=== PATIENT | female | born 1980 | race Two or more races ===

== ENCOUNTER 2025-07-14 06:13 | Emergency (ER) | payer MEDICAID, OTHER ==
[~2025-07-14] VITALS: Ht 152.4 cm; Wt 98.7 kg
--- NOTE | 2025-07-14 07:07 | ED.PDOC ---
History of Present Illness(SKN HPI Comments 45 y/o F, presents to the ED for CC of abscess. Patient states, she has an abscess to her right trapezius that has become swollen and painful to the touch x4days. Patient reports, abscess to have been present for some time however, site then became irritated d/t carrying a handbag that rubs against it. Patient denies fever, chills, sweats, or purulent drainage. No other symptoms or modifying factors are present at this time. Chief Complaint: Abscess Time Seen by MD: 07:00 History of Present Illness: Nurses Notes, Medications, Allergies Allergies: Coded Allergies: No Known Drug Allergy (Verified Allergy, Unknown, 07/14/25) Information Source: Patient Mode of Arrival: Ambulatory Severity: Moderate Timing: Days Duration: Since onset Prehospital treatment: None Location: Back (right trapezius) Mechanism: Spontaneous Onset Associated Signs and Symptoms: Redness, Swelling Past Medical History PAST MEDICAL HISTORY: Denies Surgical History: Denies all surgeries RECOVERY SPECIALIST History: Denies all RECOVERY SPECIALIST Hx Family History Family History: Unobtainable Social History Smoker: Non-Smoker Alcohol: Denies ETOH Use Drugs: Denies Drug Use Lives In: Home Constitutional: denies: chills, diaphoresis, fatigue, fever, malaise, sweats, weakness, others EENTM: denies: blurred vision, double vision, ear bleeding, ear discharge, ear drainage, ear pain, ear ringing, eye pain, eye redness, hearing loss, mouth pain, mouth swelling, nasal discharge, nose bleeding, nose congestion, nose pain, photophobia, tearing, throat pain, throat swelling, voice changes, others Respiratory: denies: cough, hemoptysis, orthopnea, SOB at rest, shortness of breath, SOB with excertion, stridor, wheezing, others Cardiovascular: denies: chest pain, dizzy spells, diaphoresis, Dyspnea on exertion, edema, irregular heart beat, left arm pain, lightheadedness, palpitations, PND, syncope, others Gastrointestinal: denies: abdomen distended, abdominal pain, blood streaked bowels, constipated, diarrhea, dysphagia, difficulty swallowing, hematemesis, melena, nausea, poor appetite, poor fluid intake, rectal bleeding, rectal pain, vomiting, others Genitourinary: denies: abnormal vagina bleeding, burning, dyspareunia, dysuria, flank pain, frequency, hematuria, incontinence, pain, , vagina discharge, urgency, others Neurological: denies: dizziness, fainting, headache, left sided numbness, left sided weakness, numbness, paresthesia, pre-existing deficit, right sided numbness, right sided weakness, seizure, speech problems, tingling, tremors, weakness, others Musculoskeletal: denies: back pain, gout, joint pain, joint swelling, muscle pain, muscle stiffness, neck pain, others Integumetry: reports: others (abscess); denies: bruises, change in color, change in hair/nails, dryness, laceration, lesions, lumps, rash, wounds Allergic/Immunocompromised: denies: Difficulty Healing, Frequent Infections, Hives, Itching, others Hematologic/Lymphatic: denies: anemia, blood clots, easy bleeding, easy bruising, swollen glands, others Endocrine: denies: excessive hunger, excessive sweating, excessive thirst, excessive urination, flushing, intolerance to cold, intolerance to heat, unexplained weight gain, unexplained weight loss, others Psychiatric: denies: anxiety, bipolar disorder, depression, hopeless, panic disorder, schizophrenia, sleepless, suicidal, others All Other Systems: Reviewed and Negative Physical Exam General Appearance: No Apparent Distress, Normal HEENT: Normal ENT Inspection, Pharynx Normal Neck: Full Range of Motion, Non-Tender, Normal, Normal Inspection Respiratory: Chest Non-Tender, Lungs Clear, No Accessory Muscle Use, No Respiratory Distress, Normal Breath Sounds Cardiovascular: No Edema, No Murmur, No Gallop, Normal Peripheral Pulses, Regular Rate/Rhythm Breast Exam: Deferred Gastrointestinal: No Organomegaly, Non Tender, No Pulsatile Mass, Normal Bowel Sounds, Soft Genitalia: Deferred Pelvic: Deferred Rectal: Deferred Extremities: No calf tenderness, Normal capillary refill, Normal inspection, Normal range of motion, Non-tender, No pedal edema Musculoskeletal : Apperance: Normal Neurologic: Alert, shredder operator II-XII nml as Tested, No Motor Deficits, Normal Affect, Normal Mood, No Sensory Deficits Cerebellar Function: Normal Reflexes: Normal Skin: Dry, Normal Color, Warm, Other (3x3cm round abscess to the right trapezius, swelling and erythema are noted) Lymphatic: No Adenopathy Was a procedure done? Was a procedure done?: Yes Sedation Sedation?: No Incision and Drainage Incision and Drainage: Other (Abscess versus phlegmon) Location Right trapezius Anesthetic: Lidocaine Preparation: Betadine Incision and Wound: Blood Informed consent obtained: Yes Risks/benefits/alt described: Yes Notes Patient tolerated the procedure well without any complications Differential Diagnosis (INTG) Abscess: Abscess, Cellulitis X-Ray, Labs, Meds, VS Vital Signs Date Time Temp Pulse Resp B/P (MAP) Pulse Ox O2 Delivery O2 Flow Rate FiO2 07/14/25 07:57 Room Air* 0 21 07/14/25 07:57 98.3 96 16 137/80 (99) 98 98.3 07/14/25 06:17 97.9 86 16 133/81 98 97.9 Time of 1ST Reevaluation: 07:30 Reevaluation 1ST: Unchanged Patient Education/Counseling: Diagnosis, Treatment, Prognosis, Need For Follow Up Family Education/Counseling: No Family Present Comments This is a patient who presents with a cellulitic area that is swollen on the right trapezius area. On examination there is no clear margins, no clear border to indicate a definite abscess. However the area is fallen and there is surrounding redness. After giving the patient the options of starting treatment with antibiotics 1st or tried to I and D along with the antibiotics patient chose to have the I and D. She understands that this may be phlegmon and not an abscess therefore we may not get any pus from the I&D. Patient understands it and chooses the I and D. the incision and drainage was attempted. The incision was made with a 11. Scalpel. I made a when he cm wide incision at the point of maximum swelling after local lidocaine was injected intradermally subcutaneously to anesthetize the area. I placed the 11. Blade into this area to a depth of about 1 cm deep without any pustulant material. This area is again, most likely a phlegmon not yet at abscess. There is cellulitic component. She will be given a shot of Rocephin. She will also be started on Keflex. I informed her that she may actually go on to develop an abscess with pustular drainage coming from the trach we just made versus resolution of the infection with antibiotic. She is to follow up with her doctor in the next couple of days. Wound care instruction will be provided. SEPSIS Sepsis Screen Date sepsis recognized/suspect: Jul 14, 2025 Time Sepsis recognized/suspect: 618 Recent Procedure: No On Antibiotic Therapy: No Respiratory Rate >20: No Heart Rate >90: No Temp<36 C (96.8 F) or >38.3 C: No SBP <90 or MAP <65 mmHG: No New Acute Mental Status Change: No Is the patient on CPAP, BIPAP,: No Vital Signs Date Time Temp Pulse Resp B/P (MAP) Pulse Ox O2 Delivery O2 Flow Rate FiO2 07/14/25 07:57 Room Air* 0 21 07/14/25 07:57 98.3 96 16 137/80 (99) 98 98.3 07/14/25 06:17 97.9 86 16 133/81 98 97.9 Departure 1 Departure Time of Disposition: 08:24 Impression: Primary Impression: Phlegmon Additional Impression: Cellulitis Disposition: HOME / SELF CARE / HOMELESS Condition: Good Additional Instructions: Follow up with your doctor in the next two days. Feel free to return to the ER for any concerns. Start antibiotics today. Keep the wound clean and dry for the next 48 hours. May cleaned the wound with Betadine and covered with a clean dressing. e-Prescriptions Ibuprofen Micronized (MOTRIN TABLET) 600 Mg Tb 600 MG PO TID PRN, #40 TAB *Black box warning-NSAIDS can increase risk of MT & hypertension, GI irritation, ulceration, bleed, perferation. Do not use post cardiac surgery. Use short duration/lowest effective dose. Prov: KRYSTINA BAIRD MD 07/14/25 Cephalexin Monohydrate (Cephalexin) 500 Mg Tab 1 TAB PO QID, #40 TAB Prov: KRYSTINA BAIRD MD 07/14/25 Discharged With: Self Critical Care Note Critical Care Time?: No Stability Stability form required: No Heart Score Heart Score: Heart Score Response (Comments) Value History N/A 0 EKG N/A 0 Age N/A 0 Risk Factors N/A 0 Troponin N/A 0 Total 0 I personally scribed for KRYSTINA BAIRD MD ([email or web address]) on 07/14/25 at 07:06. Electronically submitted by Mitra Trejo ([email or web address]). I personally scribed for KRYSTINA BAIRD MD ([email or web address]) on 07/14/25 at 08:08. Electronically submitted by Mitra Trejo ([email or web address]). KRYSTINA BAIRD MD Jul 14, 2025 07:06
[2025-07-14] MEDS: LIDOCAINE 1% HCL (LOCAL ANESTH.) INJ 20ML MDV ID ONE (08:02)
[2025-07-14] MEDS ORDERED: IBU600T PO (08:26)
[2025-07-14] MEDS ORDERED: CEPH500T PO (08:26)
[2025-07-14] MEDS ORDERED: LIDOCAINE 1% HCL (LOCAL ANESTH.) INJ 20ML MDV ONE (09:39)
[2025-07-14] MEDS ORDERED: cefTRIAXone SOD 1,000 MG VL ONE (09:40)
[2025-07-14] MEDS: cefTRIAXone SOD 1,000 MG VL IM ONE (09:52)
[2025-07-14 11:43] VITALS: BP 157/93; PULSE 77; RESP 16; TEMP 97.7; O2SAT 99
== END 2025-07-14 11:48 | disposition home or self-care (01) ==
LOC: ER 06:13
DX: L02.91 Cutaneous abscess, unspecified (principal); L03.90 Cellulitis, unspecified
CPT/HCPCS: 10060; 96372; 99283; J0696; J2003